=== PATIENT | male | born 1935 | race Two or more races ===

== ENCOUNTER 2016-11-01 16:48 | Emergency (ER) | payer MEDICARE ==
[~2016-11-01] VITALS: Ht 172.7 cm; Wt 68.0 kg
[2016-11-01] MEDS ORDERED: Bacitracin Oint UD TOPIC ONE (17:15)
[2016-11-01] MEDS ORDERED: TdaP Vaccine 0.5ml Syr IM ONE (17:15)
[2016-11-01 18:08] VITALS: BP 109/72
[2016-11-01 18:11] VITALS: BP 109/72
--- NOTE | 2016-11-01 22:05 | Emergency Room Report ---
History of Present Illness General Chief Complaint: Laceration Source: Patient Present Illness [facility] The patient is an 81 -year-old male presenting for a facial laceration after falling today. The patient states that he tripped on a wire and fell forward to the floor. He denies hitting his head and states that he just scraped his nose. He denies loss of consciousness. Pain is described as a 3/10 dull ache to the nose and does not radiate. He denies any bleeding from inside of the nose. He denies using any blood thinners. He denies any other symptoms including dizziness, blurred vision, nausea, vomiting, chest pain, shortness of breath, fever, chills Allergies: Coded Allergies: MORPHINE (Verified Allergy, Unknown, 11/01/16) Patient History Past Medical History: see triage record Pertinent Family History: none Reviewed Nursing Documentation: PMH: Agreed, PSxH: Agreed Nursing Documentation-PMH Past Medical History: No History, Except For Hx Cancer: Yes - colon, 2016 Review of Systems All Other Systems: negative except mentioned in HPI Physical Exam Vital Signs Date Time Temp Pulse Resp B/P Pulse Ox O2 Delivery O2 Flow Rate FiO2 11/01/16 16:59 98.1 75 16 109/72 98 Room Air Sp02 EP Interpretation: reviewed, normal General Appearance: no apparent distress, alert, GCS 15, non-toxic Head: normocephalic, atraumatic Eyes: bilateral eye PERRL, bilateral eye normal inspection ENT: normal pharynx, normal voice, uvula midline, other - There is a 1cm linear superficial laceration to the midline nose over the bridge Neck: full range of motion, supple/symm/no masses Musculoskeletal: back normal, gait/station normal, normal range of motion, non- tender Neurologic: alert, oriented x3, responsive, motor strength/tone normal, sensory intact, speech normal Psychiatric: judgement/insight normal, memory normal, mood/affect normal, no suicidal/homicidal ideation Skin: normal color, no rash, warm/dry, well hydrated, laceration - There is a 1cm linear superficial laceration to the midline nose over the bridge Lymphatic: no adenopathy Procedures Laceration/Wound Repair Laceration/Wound Repair : Consent: Verbal Wound Location: face Wound's Depth, Shape: superficial, linear Wound Length (cm): 1 Wound Explored: clean Irrigated w/ Saline (ccs): 100 Betadine Prep?: Yes Volume Anesthetic (ccs): 0 Wound Debrided: minimal Wound Repaired With: Dermabond Layer Closure?: No Sterile Dressing Applied?: No Splint Applied?: No Sling Applied?: No Patient Tolerated: Well Complications: None Medical Decision Making PA Attestation Dr. Almonte is my supervising physician. Patient management was discussed with my supervising physician Diagnostic Impression: Primary Impression: Facial laceration Qualified Codes: S01.81XA - Laceration without foreign body of other part of head, initial encounter ER Course The patient is an 81 -year-old male presenting for a facial laceration after falling today Ddx considered include but not limited to fracture, laceration, contusion, concussion, among others PE:Vitals within normal limits for no apparent distress HEENT: Head is NC/AT. There is a 1 cm superficial linear laceration to the bridge of the nose. No active bleeding. No bleeding from nostrils. No ecchymosis PERRL The wound is cleaned with normal saline and Betadine. Dermabond was used to approximate the wound in multiple layers. Wound approximated well. The patient is discharged home and will followup with PMD. ER precautions are given Last Vital Signs Date Time Temp Pulse Resp B/P Pulse Ox O2 Delivery O2 Flow Rate FiO2 11/01/16 18:11 98.1 83 16 109/72 98 Room Air Status: improved Disposition: HOME, SELF-CARE Condition: Improved Referrals: NON PHYSICIAN (PCP) Patient Instructions: Facial Laceration, Nonsutured Laceration Care Additional Instructions: I discussed my findings with the patient. All questions and concerns have been answered. Treatment and medication compliance have been addressed. I advised the patient that they need to follow up with PMD in 3-5 days. Return to ED if symptoms worsen, new symptoms arise, or if needed for any reason. Patient verbalized understanding of discharge instructions. DEBO ZHOU November 01, 2016 22:04
== END 2016-11-01 18:11 | disposition home or self-care (01) ==
LOC: EMR 17:30
DX: S01.81XA Laceration without foreign body of other part of head, initial encounter (principal); Z23 Encounter for immunization; W01.0XXA Fall on same level from slipping, tripping and stumbling without subsequent striking against object, initial encounter; Y93.9 Activity, unspecified; Y92.9 Unspecified place or not applicable; Z88.6 Allergy status to analgesic agent; Z85.038 Personal history of other malignant neoplasm of large intestine
CPT/HCPCS: 90471; 90715